=== PATIENT | male | born 1970 | race Caucasian/White ===

== ENCOUNTER 2021-03-29 08:56 | Emergency (ER) | payer OTHER ==
[~2021-03-29] VITALS: Ht 188 cm; Wt 81.7 kg
[2021-03-29] MEDS ORDERED: SULTRIDS PO (09:39)
[2021-03-29] MEDS ORDERED: HYDR1TAB94 PO (09:39)
== END 2021-03-29 10:11 | disposition home or self-care (01) ==
LOC: ER 08:56
DX: L02.511 Cutaneous abscess of right hand (principal); Z98.890 Other specified postprocedural states
CPT/HCPCS: 10060; 99283-25; A9270

== ENCOUNTER 2021-05-12 13:35 | Emergency (ER) | payer OTHER ==
[~2021-05-12] VITALS: Ht 182.9 cm; Wt 88.5 kg
[~2021-05-12 13:35] MED LIST: HYDR1TAB94 PO; SULTRIDS PO
[2021-05-12] MEDS ORDERED: NARCAN4 M1 (13:57)
[2021-05-12 14:33] LABS: BASOPHILS ABSOLUTE AUTO 0.03 K/mm3 (0.00-0.23); BASOPHILS PERCENT AUTO 0 % (0-2); EOSINOPHILS PERCENT AUTO 0 % (0-6); Hematocrit 43.7 % (37.0-53.0); Hemoglobin 14.3 g/dL (13.5-17.5); IMMATURE GRAN ABSOLUTE AUTO 0.06 K/mm3 (0.00-0.10); IMMATURE GRAN PERCENT AUTO 0 % (0-1); LYMPHOCYTES PERCENT AUTO 4 % (21-46); MONOCYTES PERCENT AUTO 2 % (4-13); Mean Corpuscular HGB Conc 32.7 g/dL (31.5-36.5); Mean Corpuscular Volume 83 fL (80-100); Mean Platelet Volume 8.6 fL (9.1-12.4); NEUTROPHILS ABSOLUTE AUTO 12.89 K/mm3 (1.96-9.15); NEUTROPHILS PERCENT AUTO 94 % (41-73); Platelet Count 346 K/mm3 (150-400); RDW Coefficient Variation 15.1 % (11.7-14.2); RDW Standard Deviation 45.8 fL (35.1-46.3); White Blood Cell Count 13.78 K/mm3 (4.00-11.30)
[2021-05-12 15:01] LABS: Alanine Aminotransfer (ALT/SGP 69 U/L (12-78); Albumin, Blood 3.7 g/dL (3.4-5.0); Albumin/Globulin Ratio 1.1 (0.8-1.8); Alk Phos 134 U/L (50-136); Anion Gap 6 mmol/L (6-16); Aspartate Aminotrans (AST/SGOT 82 U/L (12-37); Bilirubin, Total 0.5 mg/dL (0.1-1.0); Blood Urea Nitrogen 23 mg/dL (8-24); Bun/Creatinine Ratio 18.9 (12.0-20.0); CO2, Blood 26 mmol/L (21-32); Calcium, Blood 8.8 mg/dL (8.5-10.1); Chloride, Blood 106 mmol/L (98-108); Creatinine, Blood 1.22 mg/dL (0.60-1.20); Ethanol (Alcohol), Blood, Med <3 mg/dL; Globulin, Blood 3.4 g/dL (2.2-4.0); Glomerular Filtration Rate >60 (60-); Glucose, Blood 83 mg/dL (70-99); Potassium, Blood 4.3 mmol/L (3.5-5.5); Salicylate 1.7 mg/dL (2.8-20.0); Sodium, Blood 138 mmol/L (136-145); Total Protein, Blood 7.1 g/dL (6.4-8.2)
[2021-05-12 15:08] LABS: Acetaminophen, Random <2.0 ug/mL (10.0-30.0)
[2021-05-13] MEDS ORDERED: NARCAN4 M1 (10:24)
== END 2021-05-12 22:39 | disposition home or self-care (01) ==
LOC: ER 13:35
PROVIDERS: Family Medicine
DX: T40.1X1A Poisoning by heroin, accidental (unintentional), initial encounter (principal); T40.411A Poisoning by fentanyl or fentanyl analogs, accidental (unintentional), initial encounter; F17.210 Nicotine dependence, cigarettes, uncomplicated
CPT/HCPCS: 36415; 80053; 85025; 93005; 93010; 96374; 99285-25; G0480; J2310; J2405

== ENCOUNTER 2021-05-13 06:23 | Emergency (ER) | payer SELFPAY ==
[~2021-05-13] VITALS: Ht 180.3 cm; Wt 88.5 kg
[~2021-05-13 06:23] MED LIST changes: +NARCAN4 M1
[2021-05-13] MEDS ORDERED: NARCAN4 M1 (10:24)
== END 2021-05-13 10:30 | disposition home or self-care (01) ==
LOC: ER 06:23
DX: F19.10 Other psychoactive substance abuse, uncomplicated (principal); Z88.0 Allergy status to penicillin
CPT/HCPCS: 99283; A9270

== ENCOUNTER 2021-05-14 11:46 | Emergency (ER) | payer OTHER ==
[~2021-05-14] VITALS: Ht 185.4 cm; Wt 83.9 kg
[2021-05-14 16:16] LABS: U Amphetamine Screen DETECTED; U Barbituate Screen Not Detected; U Benzodiazapine Screen Not Detected; U Buprenorphine Screen Not Detected; U Cannabinoids Screen Not Detected; U Cocaine Screen Not Detected; U Methadone Screen Not Detected; U Methamphetamine Screen DETECTED; U Opiates Screen DETECTED; U Oxycodone Screen Not Detected; U Phencyclidine Screen Not Detected; U Propoxyphene Screen Not Detected
== END 2021-05-14 16:30 | disposition home or self-care (01) ==
LOC: ER 11:46
PROVIDERS: Physician Assistant
DX: T43.621A Poisoning by amphetamines, accidental (unintentional), initial encounter (principal); T40.601A Poisoning by unspecified narcotics, accidental (unintentional), initial encounter; Z88.0 Allergy status to penicillin
CPT/HCPCS: 96374; 99284-25; J2310